=== PATIENT | male | born 1985 | race African-American/Black ===

== ENCOUNTER 2018-10-29 08:19 | Emergency (ER) | payer MEDICARE, OTHER ==
[~2018-10-29] VITALS: Ht 195.6 cm; Wt 104.5 kg
[2018-10-29] MEDS ORDERED: AMOX875T2 PO (08:48)
[2018-10-29] MEDS ORDERED: AZIT250T9 PO (08:48)
[2018-10-29] MEDS ORDERED: IBUP-2071 PO (08:48)
[2018-10-29 10:28] VITALS: BP 127/96
== END 2018-10-29 10:44 | disposition home or self-care (01) ==
LOC: EMS 08:21
DX: J40 Bronchitis, not specified as acute or chronic (principal)
CPT/HCPCS: 87430

== ENCOUNTER 2018-10-30 02:20 | Emergency (ER) | payer MEDICARE, OTHER ==
[~2018-10-30] VITALS: Ht 195.6 cm; Wt 104.5 kg
[~2018-10-30 02:20] MED LIST: AMOX875T2 PO; AZIT250T9 PO; IBUP-2071 PO
[2018-10-30] MEDS ORDERED: ALBUTEROL SULFATE 2.5 MG/0.5 ML NEB SOLUTION NEB ONE (05:45)
[2018-10-30] MEDS ORDERED: IPRATROPIUM BROMIDE 0.5 MG/2.5 ML NEB SOLUTION NEB ONE (05:45)
[2018-10-30] MEDS ORDERED: GuaiFENesin/D-METHORPHAN [SUGAR-FREE] 200-20MG/10 ML SYRUP UDCUP PO ONE (05:45)
[2018-10-30] MEDS: ACETAMINOPHEN 500 MG TABLET PO ONE ×2 (06:17→06:25)
[2018-10-30 07:11] VITALS: BP 124/73
== END 2018-10-30 07:40 | disposition home or self-care (01) ==
LOC: EMS 02:22
DX: J45.909 Unspecified asthma, uncomplicated (principal); Z79.899 Other long term (current) drug therapy; Y04.0XXA Assault by unarmed brawl or fight, initial encounter; Y93.89 Activity, other specified; Y92.89 Other specified places as the place of occurrence of the external cause; Y99.8 Other external cause status
CPT/HCPCS: 94640